=== PATIENT | male | born 1945 | race Caucasian/White ===

== ENCOUNTER 2022-04-20 16:58 | Observation (INO) | payer OTHER ==
[2022-04-20 17:41] LABS: Absolute Lymphocytes (CBC) 2.5 K/uL (0.7-4.9); Hematocrit 38.3 % (39.6-49.0); Lymphocytes % 32.3 % (15.3-44.8); MPV 7.1 fL (7.6-11.3); RBC Red Blood Cell Count 4.09 M/uL (4.33-5.43)
[2022-04-20 17:48] LABS: Protime INR 1.38
[2022-04-20 17:59] LABS: Bilirubin Direct 0.1 mg/dL (0-0.2); Bilirubin Total 0.4 mg/dL (0.2-1.0); Magnesium 2.2 mg/dL (1.8-2.4); Potassium 3.8 mmol/L (3.5-5.1); Protein, Total 7.4 g/dL (6.4-8.2)
--- NOTE | 2022-04-20 17:59 | RAD REPORT ---
EXAM DESCRIPTION: CT - Ct Stroke Brain Wo Cont - 04/20/2022 5:48 pm CLINICAL HISTORY: Left-sided weakness COMPARISON: none TECHNIQUE: Computed axial tomography of the head was obtained. All CT scans are performed using dose optimization technique as appropriate and may include automated exposure control or mA/KV adjustment according to patient size. FINDINGS: An intracranial bleed is not seen . The ventricles are normal in caliber. No extra-axial fluid collection is noted. No significant hypodense area within the brain Fluid within the sinuses/ mastoids is not seen. IMPRESSION: No acute intracranial abnormality is seen. If patient's symptoms persist MRI of the bra in would be recommended. Shelton Page of the emergency room was notified 5:55 p.m. on April 20, 2022
[2022-04-20 18:28] LABS: Urine Blood Negative (Negative); Urine Glucose Negative (Negative); Urine Protein Negative (Negative); Urine Specific Gravity 1.015 (1.005-1.030); Urine pH 6.5 (5.0-7.0)
--- NOTE | 2022-04-20 18:46 | RAD REPORT ---
EXAM DESCRIPTION: Flora Single View04/20/2022 6:05 pm CLINICAL HISTORY: Chest pain COMPARISON: none FINDINGS: The lungs appear clear of acute infiltrate. The heart is mildly enlarged. Pacemaker leads are in place. IMPRESSION: No acute abnormalities displayed
[2022-04-20 19:17] LABS: Urine Amorphous Sediment 1+ /HPF (NONE SEEN); Urine Bacteria <20 /HPF (NONE SEEN); Urine RBC NONE SEEN /HPF (NONE SEEN)
--- NOTE | 2022-04-20 19:36 | P.HP ---
Certification for Inpatient Patient admitted to: Observation With expected LOS: <2 Midnights Patient will require the following post-hospital care: None Practitioner: I am a practitioner with admitting privileges, knowledge of patient current condition, hospital course, and medical plan of care. Services: Services provided to patient in accordance with Admission requirements found in Title 42 Section 412.3 of the Code of Federal Regulations Patient History Date of Service: 04/20/22 Reason for admission: TIA History of Present Illness: 76-year-old male with history of Alzheimer's dementia, TIA, A. fib, hypertension, gout presents emergency department for left-sided weakness. As daughter reports that she last saw him well at 1300 was called by nursing staff around 1600 patient was demonstrating left-sided weakness/leaning to the left. He was brought to the emergency department evaluated his symptoms resolved his labs were unremarkable CT head without contrast negative for acute findings CT angiogram pending. Patient cannot have MRI due to pacemaker presence. Daughter does report that he had similar episodes in the past with TIAs versus behavioral disturbances related to his Alzheimer's dementia. ED prior wishes to admit to observation for TIA. - Past Medical/Surgical History -: Alzheimer's dementia -: A. fib -: Gout -: Hypertension -: Pacemaker insertion Psychosocial/ Personal History: Patient resides at [place] - Family History Family History: Reviewed- Non-Contributory - Social History Smoking Status: Never smoker Alcohol use: No CD- Drugs: No Caffeine use: Yes Place of Residence: Home Review of Systems Unremarkable Physical Examination - Physical Exam General: Alert, In no apparent distress, Oriented x1 HEENT: Atraumatic, PERRLA, Mucous membr. moist/pink, EOMI, Sclerae nonicteric Neck: Supple, 2+ carotid pulse no bruit, No LAD, Without JVD or thyroid abnormality Respiratory: Clear to auscultation bilaterally, Normal air movement Cardiovascular: Regular rate/rhythm, Normal S1 S2 Gastrointestinal: Normal bowel sounds, No tenderness Musculoskeletal: No tenderness Integumentary: No rashes Neurological: Normal speech, Normal strength at 5/5 x4 extr, Normal tone, Normal affect - Studies Laboratory Data (last 24 hrs) 04/20/22 17:33: PT 15.3 H, INR 1.38, APTT 35.9 04/20/22 17:33: WBC 7.8, Hgb 12.9 L, Hct 38.3 L, Plt Count 323 04/20/22 17:33: Sodium 140, Potassium 3.8, BUN 15, Creatinine 1.15, Glucose 136 H, Magnesium 2.2, Total Bilirubin 0.4, AST 14 L, ALT 15, Alkaline Phosphatase 107 Assessment and Plan - Plan Assessment: Left-sided weaknessresolved suspect TIA A. fib on anticoagulation Alzheimer's dementia with behavioral disturbances Gout Hypertension Plan: Left-sided weaknessresolved suspect TIA: Neurochecks, neurology consult, will obtain carotid Doppler continue home medications including Eliquis and folic acid/statin. Will obtain lipid panel. Patient symptoms resolved at this time. A. fib on anticoagulation: Continue sotalol, Eliquis. Alzheimer's dementia with behavioral disturbances: Home medications continued recently started on Zyprexa. Gout: Continue allopurinol Hypertension: Home medications continued DVT PPX: Continue Eliquis Code status: Full Discharge Plan: Home Plan to discharge in: 24 Hours - Advance Directives Does patient have a Living Will: No Does patient have a Durable POA for Healthcare: No - Code Status/Comfort Care Code Status Assessed: Yes (DNR) Critical Care: No Time Spent Managing Pts Care (In Minutes): 70
--- NOTE | 2022-04-20 19:46 | EDPHYS ---
Physician Documentation [facility] Name: Stefan Newton Age: 76 yrs Sex: Male : 1945 Arrival Date: 04/20/2022 Time: 17:07 Bed 20 Private MD: ED Physician Abdullahi Lee HPI: 04/20 17:15 This 76 yrs old Male presents to ER via EMS with complaints of Left Side Weakness. cp 17:15 The patient's problem is reported as weakness, in the left upper extremity, in the left cp lower extremity. Onset: The symptoms/episode began/occurred today, at about 1600. 17:15 Duration: The episode is continuous. Associated signs and symptoms: Pertinent cp positives: abdominal pain, chest pain. 17:20 Daughter reports she was visiting patient at [facility] and last saw him cp today at 1530 and he was at baseline normal mentation and no observed signs of left side weakness. 17:20 Patient's baseline: Neuro: alert but confused, Motor: no deficits, Ambulation: walks cp without assistance, Speech: normal. Historical: - Allergies: 17:09 No Known Allergies; pierson - Home Meds: 17:09 Unable to obtain [Active]; pierson - PSHx: 17:09 Unable to Obtain; pierson - Immunization history:: Adult Immunizations up to date. - Social history:: Smoking status: Patient denies any tobacco usage or history of. ROS: 17:18 Constitutional: Negative for body aches, chills, fever, poor PO intake. cp 17:18 Eyes: Negative for injury, pain, redness, and discharge. cp 17:18 ENT: Negative for drainage from ear(s), ear pain, sore throat, difficulty swallowing, difficulty handling secretions. 17:18 Cardiovascular: Positive for chest pain, Negative for edema, palpitations. 17:18 Respiratory: Negative for cough, shortness of breath, wheezing. 17:18 Abdomen/GI: Negative for vomiting, diarrhea, constipation. 17:18 Skin: Negative for cellulitis, rash. 17:18 Neuro: Positive for weakness, of the left arm and left leg, Negative for altered mental status, headache, syncope. 17:18 All other systems are negative. Exam: 17:20 Constitutional: The patient appears in no acute distress, alert, awake, cp non-diaphoretic, non-toxic, well developed, well nourished. 17:20 Head/Face: Normocephalic, atraumatic. cp 17:20 Eyes: Periorbital structures: appear normal, Pupils: equal, round, and reactive to light and accomodation, Extraocular movements: intact throughout, Conjunctiva: normal, no exudate, no injection, Sclera: no appreciated abnormality, Lids and lashes: appear normal, bilaterally. 17:20 ENT: External ear(s): are unremarkable, Nose: is normal, Mouth: Lips: moist, Oral mucosa: pink and intact, moist, Posterior pharynx: Airway: no evidence of obstruction, patent. 17:20 Neck: ROM/movement: is normal, is supple, without pain, no range of motions limitations. 17:20 Chest/axilla: Inspection: normal, Palpation: is normal, no crepitus, no tenderness. 17:20 Cardiovascular: Rate: normal, Rhythm: regular, Edema: ankle edema, that is mild, JVD: is not appreciated. 17:20 Respiratory: the patient does not display signs of respiratory distress, Respirations: normal, no use of accessory muscles, no retractions, labored breathing, is not present, Breath sounds: are clear throughout, no decreased breath sounds, no stridor, no wheezing. 17:20 Abdomen/GI: Inspection: abdomen appears normal, Palpation: abdomen is soft and non-tender, in all quadrants. 17:20 Back: pain, is absent, ROM is normal. 17:20 Skin: cellulitis, is not appreciated, no rash present. 17:20 Neuro: Orientation: to person, Mentation: able to follow commands, slow to respond, Motor: moves all fours, Sensation: no obvious gross deficits. 17:58 Radiologist reports: no acute findings cp 18:00 ECG was reviewed by the Attending Physician. cp Vital Signs: 17:07 BP 151 / 74; Pulse 83; Resp 17; Temp 97.5(T); Pulse Ox 95% on R/A; Weight 106.14 kg; pierson Height 5 ft. 9 in. (175.26 cm); 18:47 BP 169 / 81; Pulse 66; Resp 17; Pulse Ox 99% on R/A; pierson 17:07 Body Mass Index 34.56 (106.14 kg, 175.26 cm) pierson NIH Stroke Scale Scores: 17:15 NIHSS Score: 4 pierson 17:25 NIHSS Score: 1 cp MDM: 17:16 ED course: patient is not a tpa candidate as he is currently taking prescribed Eliquis cp for afib. 17:30 Differential diagnosis: CVA, TIA, metabolic disorder, drug effects, acute FL. 18:11 Patient medically screened. [email or web address] 19:00 Data reviewed: vital signs, nurses notes, lab test result(s), EKG, radiologic studies, cp CT scan. 19:00 Physician consultation: Jose A Zaman was contacted at 19:00, regarding admission, to the telemetry unit. patient's condition. 19:44 Physician consultation: Juanjose Lopez MD was called at 19:44, was contacted at 19:44, regarding consult, patient's condition. 04/20 17:15 Order name: Basic Metabolic Panel; Complete Time: 18:12 04/20 18:12 Interpretation: Normal except: GLUC 136; GFR 67. 04/20 17:15 Order name: CBC with Diff; Complete Time: 18:12 04/20 18:12 Interpretation: Normal except: RBC 4.09; HGB 12.9; HCT 38.3; MPV 7.1; EOSINOPHIL % 4.8. 04/20 17:15 Order name: CPK; Complete Time: 18:12 04/20 17:15 Order name: Hepatic Function; Complete Time: 18:12 04/20 17:15 Order name: Magnesium; Complete Time: 18:12 04/20 17:15 Order name: Protime (+inr); Complete Time: 18:12 04/20 17:15 Order name: Ptt, Activated; Complete Time: 18:12 04/20 17:15 Order name: CT Stroke Brain w/o Contrast; Complete Time: 18:12 04/20 17:15 Order name: Stroke CXR 1 View; Complete Time: 18:54 04/20 17:15 Order name: Urine Microscopic Only; Complete Time: 19:41 04/20 19:41 Interpretation: Reviewed. 04/20 17:58 Order name: COVID-19 SARS RT PCR (Document "Date of Onset" if Symptomatic); Complete ss Time: 19:41 04/20 18:28 Order name: Urine Dipstick-Ancillary; Complete Time: 18:32 EDMS / 04:43 Order name: Lipid Profile; Complete Time: 14:56 EDMS /10 10:15 Order name: Urinalysis; Complete Time: 14:56 EDMS 04/20 17:15 Order name: EKG; Complete Time: 17:16 cp 04/20 17:15 Order name: Accucheck; Complete Time: 18:33 cp 04/20 17:15 Order name: Cardiac monitoring; Complete Time: 18:33 cp 04/20 17:15 Order name: EKG - Nurse/Tech; Complete Time: 18:33 cp 04/20 17:15 Order name: IV Saline Lock; Complete Time: 18:33 cp 04/20 17:15 Order name: Labs collected and sent; Complete Time: 18:33 cp 04/20 17:15 Order name: NPO; Complete Time: 18:33 cp 04/20 17:15 Order name: O2 Per Protocol; Complete Time: 18:33 cp 04/20 17:15 Order name: O2 Sat Monitoring; Complete Time: 18:33 cp 04/20 18:58 Order name: CT Head Angio 04/20 20:00 Order name: CT Neck Angio cp 04/20 20:31 Order name: CT; Complete Time: 14:56 EDMS 04/20 20:36 Order name: CT; Complete Time: 14:56 EDMS 04/21 08:52 Order name: US; Complete Time: 14:56 EDMS 04/20 17:15 Order name: Stroke Swallow Screen; Complete Time: 19:30 cp 04/20 17:15 Order name: Urine Dipstick-Ancillary (obtain specimen); Complete Time: 18:33 cp EC:00 Rate is 60 beats/min. Rhythm is regular. QRS interval is prolonged at 172 msec. QT cp interval is prolonged at 514 msec. T waves are Inverted in lead aVR. Interpreted by me. Reviewed by me. Administered Medications: 20:01 Drug: Zofran (Ondansetron) 4 mg Route: IVP; Site: left antecubital; sm5 Disposition: 17:16 Attestation: The patient's history, exam findings, diagnostics, and a summary of any [facility] interventions or procedures was reviewed in detail with Shelton BECKFORD. Disposition Summary: 04/20/22 19:45 Hospitalization Ordered Hospitalization Status: Observation cp Condition: Stable cp Problem: new cp Symptoms: have improved cp Bed/Room Type: Standard cp Location: [facility] ER HOLD(04/20/22 19:46) cg Room Assignment: ERHOLD-(04/20/22 19:46) cg Provider: Sunny Zurita(04/20/22 20:01) cp Diagnosis - Weakness - left side cp - Chest pain, unspecified cp Forms: - Medication Reconciliation Form cp - SBAR form cp NIH Stroke Scale - NIH Stroke Score Date: 04/20/2022 Time: 17:15 Total Score = 4 1a. Level of Consciousness (LOC) - 1(Not Alert) 1b. Level of Consciousness (LOC) (Month \\T\\ Age) - 2(Neither) 1c. LOC Commands (Open \\T\\ Closes Eyes/Estate Planning Paralegal) - 0(Both) 2. Best Gaze (Lateral Gaze Paresis) - 0(Normal) 3. Visual Field Loss - 0(No visual loss) 4. Facial Palsy - 0(Normal) 5a. Left Arm: Motor (10-second hold) - 0(No drift) 5b. Right Arm: Motor (10-second hold) - 0(No drift) 6a. Left Leg: Motor (5-second hold - always test supine) - 0(No drift) 6b. Right Leg: Motor (5-second hold - always test supine) - 0(No drift) 7. Limb Ataxia (finger/nose \\T\\ heel/almeida - test with eyes open) - 1(Present in one limb) 8. Sensory Loss (pinprick arms/legs/face) - 0(Normal) 9. Best Language: Aphasia (description/naming/reading) - 0(No aphasia) 10. Dysarthria (speech clarity - read or repeat words) - 0(Normal) 11. Extinction and Inattention (visual/tactile/auditory/spatial/personal) - 0(No abnormality) Initials: pierson NIH Stroke Scale - NIH Stroke Score Date: 04/20/2022 Time: 17:25 Total Score = 1 1a. Level of Consciousness (LOC) - 0(Alert) 1b. Level of Consciousness (LOC) (Month \\T\\ Age) - 0(Both) 1c. LOC Commands (Open \\T\\ Closes Eyes/Estate Planning Paralegal) - 0(Both) 2. Best Gaze (Lateral Gaze Paresis) - 0(Normal) 3. Visual Field Loss - 0(No visual loss) 4. Facial Palsy - 1(Minor Paralysis) 5a. Left Arm: Motor (10-second hold) - 0(No drift) 5b. Right Arm: Motor (10-second hold) - 0(No drift) 6a. Left Leg: Motor (5-second hold - always test supine) - 0(No drift) 6b. Right Leg: Motor (5-second hold - always test supine) - 0(No drift) 7. Limb Ataxia (finger/nose \\T\\ heel/almeida - test with eyes open) - 0(Absent) 8. Sensory Loss (pinprick arms/legs/face) - 0(Normal) 9. Best Language: Aphasia (description/naming/reading) - 0(No aphasia) 10. Dysarthria (speech clarity - read or repeat words) - 0(Normal) 11. Extinction and Inattention (visual/tactile/auditory/spatial/personal) - 0(No abnormality) Initials: cp Signatures: Dispatcher [employer] EDMS Jose A Zaman, BRIGHT CUTTER-C BRIGHT CUTTER-Cla1 Shelton Segovia PA PA cp Nishi Tovar, RN Susanna Panda, RN RN sm5 Sara Salgado, RN Abdullahi Sanchez MD MD [email or web address] Corrections: (The following items were deleted from the chart) 19:46 19:45 Telemetry/MedSurg (observation) cp cg 19:46 19:45 cp cg 20:01 18:15 Mustafa ordered. cp cp 20:01 19:45 Jose A Zaman cp cp
--- NOTE | 2022-04-20 19:46 | ER ---
Nurse's Notes [facility] Name: Stefan Newton Age: 76 yrs Sex: Male : 1945 Arrival Date: 04/20/2022 Time: 17:07 Bed 20 Private MD: Diagnosis: Weakness-left side;Chest pain, unspecified Presentation: 04/20 17:07 Chief complaint: Patient's son or daughter states: generalize weakness, abdominal pain pierson and chest pain. Coronavirus screen: Vaccine status: Patient reports receiving the 2nd dose of the covid vaccine. Ebola Screen: Patient denies travel to an Ebola-affected area in the 21 days before illness onset. Initial Sepsis Screen: Does the patient meet any 2 criteria? Does the patient have a suspected source of infection? No. Patient's initial sepsis screen is negative. Risk Assessment: Do you want to hurt yourself or someone else? Patient reports no desire to harm self or others. Onset of symptoms was April 20, 2022. 17:07 Method Of Arrival: EMS: [facility] pierson 17:07 Acuity: MARIE 4 pierson 17:07 Acuity: MARIE 4 pierson Historical: - Allergies: 17:09 No Known Allergies; pierson - Home Meds: 17:09 Unable to obtain [Active]; pierson - PSHx: 17:09 Unable to Obtain; pierson - Immunization history:: Adult Immunizations up to date. - Social history:: Smoking status: Patient denies any tobacco usage or history of. Screenin:10 Abuse screen: Denies threats or abuse. Denies injuries from another. Nutritional pierson screening: No deficits noted. Tuberculosis screening: No symptoms or risk factors identified. Fall Risk None identified. 19:30 The patient has not been NPO before screening. The patient is alert, able to follow sm5 commands. The patient does not exhibit slurred or garbled speech The patient is not exhibiting difficulty speaking. The patient does not exhibit difficulty understanding words. The patient is able to swallow own secretions with no drooling or need for suction. Patient tolerated one teaspoon of water. No drooling, immediate coughing, gurgling, or clearing of the throat was noted. The patient tolerated 90mL of water. No drooling, immediate coughing, gurgling, or clearing of the throat was noted. The patient passed the bedside swallow screening. Oral medications may be given as ordered. Contact Physician for further diet orders. Assessment: 17:10 General: Appears in no apparent distress. Behavior is calm, cooperative. Pain: pierson Complains of pain in abdomen. Cardiovascular: Reports chest pain. GI: Reports upper abdominal pain. 20:02 General: Appears in no apparent distress. Behavior is cooperative. Pain: Denies pain. sm5 Neuro: Level of Consciousness is awake, alert, obeys commands. Cardiovascular: No deficits noted. Capillary refill < 3 seconds Patient's skin is warm and dry. Respiratory: No deficits noted. Airway is patent Trachea midline Respiratory effort is even, unlabored. Vital Signs: 17:07 BP 151 / 74; Pulse 83; Resp 17; Temp 97.5(T); Pulse Ox 95% on R/A; Weight 106.14 kg; pierson Height 5 ft. 9 in. (175.26 cm); 18:47 BP 169 / 81; Pulse 66; Resp 17; Pulse Ox 99% on R/A; pierson 17:07 Body Mass Index 34.56 (106.14 kg, 175.26 cm) pierson NIH Stroke Scale Scores: 17:15 NIHSS Score: 4 pierson 17:25 NIHSS Score: 1 cp ED Course: 17:07 Patient arrived in ED. peirson 17:07 Abdullahi Lee MD is Attending Physician. [email or web address] 17:09 Triage completed. pierson 17:10 Patient has correct armband on for positive identification. pierson 17:10 No provider procedures requiring assistance completed. pierson 17:12 Arm band placed on. pierson 17:14 Shelton Segovia PA is PHCP. cp 17:15 Sara Salgado, RN is Primary Nurse. pierson 17:49 CT Stroke Brain w/o Contrast In Process Unspecified. EDMS 18:06 Stroke CXR 1 View In Process Unspecified. EDMS 19:45 Jose A Zaman is Hospitalizing Provider. cp 20:01 Hospitalizing Provider role handed off by Jose A Zaman cp 20:01 Sunny Zurita MD is Hospitalizing Provider. cp Administered Medications: 20:01 Drug: Zofran (Ondansetron) 4 mg Route: IVP; Site: left antecubital; sm5 Medication: 17:10 VIS not applicable for this client. pierson Outcome: 19:45 Decision to Hospitalize by Provider. cp 06 14:30 Patient left the ED. [email or web address] NIH Stroke Scale - NIH Stroke Score Date: 04/20/2022 Time: 17:15 Total Score = 4 1a. Level of Consciousness (LOC) - 1(Not Alert) 1b. Level of Consciousness (LOC) (Month \T\ Age) - 2(Neither) 1c. LOC Commands (Open \T\ Closes Eyes/Cupola Operator Insulation) - 0(Both) 2. Best Gaze (Lateral Gaze Paresis) - 0(Normal) 3. Visual Field Loss - 0(No visual loss) 4. Facial Palsy - 0(Normal) 5a. Left Arm: Motor (10-second hold) - 0(No drift) 5b. Right Arm: Motor (10-second hold) - 0(No drift) 6a. Left Leg: Motor (5-second hold - always test supine) - 0(No drift) 6b. Right Leg: Motor (5-second hold - always test supine) - 0(No drift) 7. Limb Ataxia (finger/nose \T\ heel/almeida - test with eyes open) - 1(Present in one limb) 8. Sensory Loss (pinprick arms/legs/face) - 0(Normal) 9. Best Language: Aphasia (description/naming/reading) - 0(No aphasia) 10. Dysarthria (speech clarity - read or repeat words) - 0(Normal) 11. Extinction and Inattention (visual/tactile/auditory/spatial/personal) - 0(No abnormality) Initials: pierson NIH Stroke Scale - NIH Stroke Score Date: 04/20/2022 Time: 17:25 Total Score = 1 1a. Level of Consciousness (LOC) - 0(Alert) 1b. Level of Consciousness (LOC) (Month \T\ Age) - 0(Both) 1c. LOC Commands (Open \T\ Closes Eyes/Cupola Operator Insulation) - 0(Both) 2. Best Gaze (Lateral Gaze Paresis) - 0(Normal) 3. Visual Field Loss - 0(No visual loss) 4. Facial Palsy - 1(Minor Paralysis) 5a. Left Arm: Motor (10-second hold) - 0(No drift) 5b. Right Arm: Motor (10-second hold) - 0(No drift) 6a. Left Leg: Motor (5-second hold - always test supine) - 0(No drift) 6b. Right Leg: Motor (5-second hold - always test supine) - 0(No drift) 7. Limb Ataxia (finger/nose \T\ heel/almeida - test with eyes open) - 0(Absent) 8. Sensory Loss (pinprick arms/legs/face) - 0(Normal) 9. Best Language: Aphasia (description/naming/reading) - 0(No aphasia) 10. Dysarthria (speech clarity - read or repeat words) - 0(Normal) 11. Extinction and Inattention (visual/tactile/auditory/spatial/personal) - 0(No abnormality) Initials: cp Signatures: Dispatcher [employer] EDMS Shelton Segovia PA PA cp Juan David Gabriel RN RN jd3 Susanna Ibarra RN RN sm5 Natasha-Sara Francis RN RN Abdullahi Calero MD MD [email or web address]
[2022-04-20] MEDS ORDERED: ONDANSETRON 4 MG/2 ML VIAL IV PRN (19:57)
[2022-04-20] MEDS ORDERED: ONDANSETRON 4 MG/2 ML VIAL ONE (20:02)
--- NOTE | 2022-04-20 20:30 | RAD REPORT ---
EXAM DESCRIPTION: Curtis Angio04/20/2022 8:10 pm CLINICAL HISTORY: Left-sided weakness COMPARISON: None TECHNIQUE: 50 cc Isovue 370 was administered intravenously. 3D MIP reconstruction performed All CT scans are performed using dose optimization technique as appropriate and may include automated exposure control or mA/KV adjustment according to patient size. FINDINGS: Calcified plaque is present within the left carotid bulb/proximal left internal carotid ar alphonse resulting in an approximately 70- 75% stenosis. Calcified plaque is present within the proximal right internal carotid artery resulting in 80 85% bakari nosis. Common carotid and external carotid arteries unremarkable Right vertebral artery is dominant and appears normal. Left vertebral artery is small. Portions of the distal left vertebral artery are poorly opacified IMPRESSION: Severe stenosis involving the left carotid bulb/proximal left internal carotid artery an d proximal right internal carotid artery Left vertebral artery is small. Portions of the distal artery are poorly opacified. 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 A chronic dissection can also result in this appearance NASCET criteria used. Mild 0-49% stenosis Moderate 50-69% stenosis Severe 70-99% stenosis
--- NOTE | 2022-04-20 20:34 | RAD REPORT ---
EXAM DESCRIPTION: CTHead angio04/20/2022 8:09 pm CLINICAL HISTORY: Left-sided weakness/CVA COMPARISON: None TECHNIQUE: CT angiogram of the head was obtained. 3D MIPS reconstruction performed. All CT scans are performed using dose optimization technique as appropriate and may include automated exposure control or mA/KV adjustment according to patient size. 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 Mild calcified plaque distal internal carotid arteries The basilar, anterior cerebral, middle cerebral and posterior cerebral arteries are normal caliber. An aneurysm is not seen. A significant stenosis is not noted. IMPRESSION: No acute abnormality is displayed
[2022-04-20] MEDS ORDERED: OLANZapine 2.5 MG TAB PO SCH (21:00)
[2022-04-20] MEDS: MEMANTINE HCL 10 MG TABLET PO SCH (21:00)
[2022-04-20] MEDS: APIXABAN 5 MG TABLET PO SCH (21:00)
[2022-04-20] MEDS: CARBIDOPA/LEVODOPA 25/100 TAB PO SCH (21:00)
[2022-04-20] MEDS ORDERED: ATORVASTATIN 10 MG TAB PO SCH (21:00)
[2022-04-20] MEDS ORDERED: ATORVASTATIN 20 MG TAB ONE (21:52)
[2022-04-20] MEDS ORDERED: APIXABAN 5 MG TABLET ONE (21:52)
[2022-04-20] MEDS ORDERED: MEMANTINE HCL 10 MG TABLET ONE (22:14)
[2022-04-20] MEDS ORDERED: CARBIDOPA/LEVODOPA 25/100 TAB ONE (22:15)
[2022-04-21] MEDS ORDERED: SOTALOL HCL 80 MG TAB PO SCH (06:00)
[2022-04-21 06:15] VITALS: BMI 34.5
[2022-04-21] MEDS ORDERED: SOTALOL HCL 80 MG TAB ONE (06:16)
--- NOTE | 2022-04-21 06:16 | EKG ---
Test Date: 2022-04-20 Test Time: 17:51:48 Gauge And Weigh Machine Adjuster: KEVIN MEASUREMENT RESULTS: Intervals: Rate: 60 [place]: QRSD: 172 QT: 514 QTc: 514 [place]: P: OH: QRS: 249 T: 55 INTERPRETIVE STATEMENTS: Wide QRS rhythm Right bundle branch block Anterolateral infarct, age undetermined Abnormal ECG No previous ECG available for comparison Electronically Signed On 04-21-22 06:16:04 CDT by Tad Waldrop
--- NOTE | 2022-04-21 08:52 | RAD REPORT ---
EXAM DESCRIPTION: USCarotid Artery Bilateral04/21/2022 8:34 am CLINICAL HISTORY: TIA FINDINGS: The velocity of the right internal carotid artery equals 71 cm/sec. The right ICA/CCA rati o 1.2 The velocity of the left internal carotid artery equals 70 cm/sec. The left ICA/CCA ratio 1.2 Moderate calcified plaque left carotid bulb. Moderate calcified plaque proximal right internal caroti d artery Right vertebral artery demonstrates retrograde flow. Left vertebral artery demonstrates antegrade lisa w IMPRESSION: Moderate calcified plaque left carotid bulb without evidence of hemodynamically signific ant stenosis Moderate calcified plaque right internal carotid artery without evidence of a hemodynamically signifi cant stenosis Retrograde flow right vertebral artery NASCET criteria used. Mild 0-49% stenosis Moderate 50-69% stenosis Severe 70-99% stenosis
[2022-04-21] MEDS ORDERED: allopurinoL 300 MG TAB PO SCH (09:00)
[2022-04-21] MEDS ORDERED: FOLIC ACID 1 MG TABLET PO SCH (09:00)
[2022-04-21] MEDS ORDERED: SERTRALINE HCL 100 MG TAB PO SCH (09:00)
[2022-04-21] MEDS ORDERED: OLANZapine 2.5 MG TAB PO SCH (09:00)
[2022-04-21] MEDS ORDERED: lisinopriL 5 MG TAB PO SCH (09:00)
[2022-04-21] MEDS ORDERED: lisinopriL 5 MG TAB ONE (09:22)
[2022-04-21] MEDS ORDERED: APIXABAN 5 MG TABLET ONE (09:23)
[2022-04-21] MEDS ORDERED: FOLIC ACID 1 MG TABLET ONE (09:23)
[2022-04-21 10:15] LABS: Urine Appearance Clear (Clear); Urine Bilirubin Negative (Negative); Urine Blood Negative (Negative); Urine Color Yellow (Yellow); Urine Glucose Negative (Negative); Urine Protein Negative (Negative); Urine Specific Gravity 1.015 (1.005-1.030); Urine Urobilinogen 0.2 mg/dL (0.2-1.0)
[2022-04-21 10:17] LABS: Urine Microscopic Reflex NO UMIC
[2022-04-21] MEDS: APIXABAN 5 MG TABLET PO SCH (10:52)
[2022-04-21] MEDS: CARBIDOPA/LEVODOPA 25/100 TAB PO SCH (10:54)
[2022-04-21] MEDS: MEMANTINE HCL 10 MG TABLET PO SCH (10:54)
[2022-04-21 13:57] VITALS: BP 131/75; TEMP 97.3
--- NOTE | 2022-04-21 13:58 | P.DS ---
Admission Date: 04/20/22 Discharge Date: 04/21/22 Disposition: ROUTINE DISCHARGE Discharge Condition: GOOD Reason for Admission: TIA Procedures: CTA head and neck, Carotid doppler, CT head. Brief History of Present Illness: 76-year-old male with history of Alzheimer's dementia, TIA, A. fib, hypertension, gout presents emergency department for left-sided weakness. As daughter reports that she last saw him well at 1300 was called by nursing staff around 1600 patient was demonstrating left-sided weakness/leaning to the left. He was brought to the emergency department evaluated his symptoms resolved his labs were unremarkable CT head without contrast negative for acute findings CT angiogram pending. Patient cannot have MRI due to pacemaker presence. Daughter does report that he had similar episodes in the past with TIAs versus behavioral disturbances related to his Alzheimer's dementia. ED prior wishes to admit to observation for TIA. Hospital Course: Patient was admitted to the acute medicine service for TIA work-up. He has CTA of the neck done and he also had carotid Dopplers done. He was found to have significant stenosis in bilateral carotid arteries in upper region however the carotid Doppler done to evaluate lower carotid vasculature were normal. A retrograde vertebral artery flow was noted. Since he had no acute strokes and his symptoms are resolved patient was deemed stable to be discharged home to continue with oral Eliquis therapy for chronic atrial fibrillation on anticoagulation and also rate control medication. Since he has advanced d ementia family is not willing to pursue significant aggressive therapy. He will continue with nursing care by his primary care doctor. Vital Signs/Physical Exam: Temp Pulse Resp BP Pulse Ox 97.3 F 60 17 131/75 100 04/21/22 12:00 04/21/22 12:00 04/21/22 12:00 04/21/22 12:04/21/22 12:00 General: Alert HEENT: Atraumatic, Normocephalic Neck: Supple Respiratory: Normal air movement Cardiovascular: Regular rate/rhythm, Normal S1 S2 Gastrointestinal: Soft and benign Musculoskeletal: No swelling Laboratory Data at Discharge: WBC 7.8 K/uL (4.3-10.9) 04/20/22 17:33 Hgb 12.9 g/dL (13.6-17.9) L 04/20/22 17:33 Hct 38.3 % (39.6-49.0) L 04/20/22 17:33 Plt Count 323 K/uL (152-406) 04/20/22 17:33 PT 15.3 SECONDS (9.5-12.5) H 04/20/22 17:33 INR 1.38 04/20/22 17:33 APTT 35.9 SECONDS (24.3-36.9) 04/20/22 17:33 Sodium 140 mmol/L (136-145) 04/20/22 17:33 Potassium 3.8 mmol/L (3.5-5.1) 04/20/22 17:33 BUN 15 mg/dL (7-18) 04/20/22 17:33 Creatinine 1.15 mg/dL (0.55-1.3) 04/20/22 17:33 Glucose 136 mg/dL (74-106) H 04/20/22 17:33 Magnesium 2.2 mg/dL (1.8-2.4) 04/20/22 17:33 Total Bilirubin 0.4 mg/dL (0.2-1.0) 04/20/22 17:33 AST 14 U/L (15-37) L 04/20/22 17:33 ALT 15 U/L (12-78) 04/20/22 17:33 Alkaline Phosphatase 107 U/L (45-117) 04/20/22 17:33 Triglycerides 176 mg/dL (<150) H 04/21/22 03:47 Cholesterol 123 mg/dL (<200) 04/21/22 03:47 HDL Cholesterol 27 mg/dL (40-60) L 04/21/22 03:47 Cholesterol/HDL Ratio 4.56 04/21/22 03:47 Home Medications: Apixaban [Eliquis] 5 mg PO BID tablet 04/21/22 Atorvastatin Calcium [Lipitor*] 10 mg PO BEDTIME tab 04/21/22 Carbidopa/Levodopa 25-100 [Sinemet 25-100*] 1 tab PO TID tab 04/21/22 Memantine HCl [Namenda*] 10 mg PO BID tablet 04/21/22 Sertraline [Zoloft*] 100 mg PO DAILY tab 04/21/22 Sotalol HCl [Betapace*] 80 mg PO BID 6AM 6PM tab 04/21/22 lisinopriL [Prinivil*] 2.5 mg PO DAILY tab 04/21/22 Diet: AHA Activity: Fall precautions Followup: Tapan Red MD [Primary Care Provider] - (notify Dr of hospitalization)
[2022-04-21 14:43] VITALS: O2SAT 99
== END 2022-04-21 14:30 | disposition home or self-care (01) ==
LOC: ER 16:58 → ERHOLD 18:54
PROVIDERS: ADMIT Internal Medicine Nephrology; ATTEND Internal Medicine Nephrology
DX: R53.1 Weakness (principal); I48.91 Unspecified atrial fibrillation; I10 Essential (primary) hypertension; I65.23 Occlusion and stenosis of bilateral carotid arteries; G30.9 Alzheimer's disease, unspecified; F02.81 Dementia in other diseases classified elsewhere, unspecified severity, with behavioral disturbance; R07.9 Chest pain, unspecified; M10.9 Gout, unspecified; Z66 Do not resuscitate; Z95.0 Presence of cardiac pacemaker; Z79.01 Long term (current) use of anticoagulants; Z20.822 Contact with and (suspected) exposure to COVID-19
CPT/HCPCS: 93005; 85025; 80048; 36415; 83735; 82550; 85610; 80061; 80076; 85730; 81003; 70496; 70498; 70450; 71045; 93880; 96374; 99283; U0003; Q9967; J2405; G0378 ×3; 81015